=== PATIENT | male | born 1975 | race Caucasian/White ===

== ENCOUNTER 2017-12-06 02:50 | Emergency (ER) | payer OTHER ==
[~2017-12-06] VITALS: Ht 177.8 cm; Wt 72.6 kg
== END 2017-12-06 04:59 | disposition home or self-care (01) ==
LOC: ER 02:50
DX: T69.8XXA Other specified effects of reduced temperature, initial encounter (principal); M79.671 Pain in right foot; M79.672 Pain in left foot; F17.210 Nicotine dependence, cigarettes, uncomplicated; Z59.0 Homelessness; X31.XXXA Exposure to excessive natural cold, initial encounter; Y93.89 Activity, other specified; Y92.89 Other specified places as the place of occurrence of the external cause; Y99.8 Other external cause status